=== PATIENT | male | born 1965 | race Caucasian/White ===

== ENCOUNTER 2019-10-15 04:19 | Emergency (ER) | payer MEDICAID ==
[~2019-10-15] VITALS: Ht 182.9 cm; Wt 89.8 kg
[2019-10-15 04:24] VITALS: Ht 182.9 cm; Wt 89.8 kg
[2019-10-15 07:30] VITALS: BP 110/60
== END 2019-10-15 07:30 | disposition home or self-care (01) ==
LOC: ED 04:19
DX: S83.92XA Sprain of unspecified site of left knee, initial encounter (principal); I10 Essential (primary) hypertension; Z59.0 Homelessness; W18.39XA Other fall on same level, initial encounter; Y93.89 Activity, other specified; Y92.89 Other specified places as the place of occurrence of the external cause; Y99.8 Other external cause status
CPT/HCPCS: Q0092